=== PATIENT | female | born 1985 | race Caucasian/White ===

== ENCOUNTER 2017-01-04 20:08 | Emergency (ER) | payer MEDICAID ==
[~2017-01-04] VITALS: Ht 165.1 cm; Wt 69.2 kg
[~2017-01-04 20:08] MED LIST: ALBU18HF INH; FLOVENT; METO25TA91 PO; NITR100C56 PO; PREN1TAB60 PO; PRENATAL; [UNRECOGNIZED DRUG - CODE]; progesterone supp RC
[2017-01-04] MEDS ORDERED: ONDANSETRON ODT 8 MG PO ONE (21:09)
[2017-01-04] MEDS ORDERED: MECLIZINE CHEWABLE 25 MG TAB PO ONE (21:30)
[2017-01-04] MEDS ORDERED: MECLIZINE CHEWABLE 25 MG TAB ONE (21:33)
[2017-01-04] MEDS ORDERED: ONDANSETRON ODT 4 MG ONE (21:33)
[2017-01-04] MEDS ORDERED: ONDANSETRON ODT 8 MG ONE (21:37)
[2017-01-04 22:03] LABS: BLOOD UREA NITROGEN 5 mg/dL (7-18)
[2017-01-04 22:07] LABS: IS PT STATUS REG ER OR PRE ER? YES
[2017-01-04 23:45] VITALS: BP 117/73
[2017-01-05] MEDS ORDERED: MECL25TA4 PO (18:39)
[2017-01-05] MEDS ORDERED: ONDA4TAB10 PO (18:39)
== END 2017-01-04 23:47 | disposition home or self-care (01) ==
LOC: ED 23:12
DX: R42 Dizziness and giddiness (principal); R11.0 Nausea; Z88.1 Allergy status to other antibiotic agents
CPT/HCPCS: 36415; 80048; 81001; 82040; 83605; 84484; 85025; 87086; 93005; 99285; Q0162

== ENCOUNTER 2017-01-05 18:09 | Emergency (ER) | payer MEDICAID ==
[~2017-01-05] VITALS: Ht 165.1 cm; Wt 71.3 kg
[2017-01-05] MEDS ORDERED: MECL25TA4 PO (18:39)
[2017-01-05] MEDS ORDERED: ONDA4TAB10 PO (18:39)
[2017-01-05] MEDS ORDERED: ONDANSETRON 2MG/ML, 2ML IVPush ONE (19:00)
[2017-01-05] MEDS ORDERED: SODIUM CHLORIDE 0.9% 1,000ML IVBOLUS ONE (19:00)
[2017-01-05] MEDS ORDERED: METOCLOPRAMIDE 5 MG/ML, 2ML IVPush ONE (19:00)
[2017-01-05] MEDS ORDERED: SODIUM CHLORIDE FLUSH 10ML SYR IVF ONE (19:00)
[2017-01-05] MEDS ORDERED: METOCLOPRAMIDE 5 MG/ML, 2ML ONE (19:10)
[2017-01-05] MEDS ORDERED: ONDANSETRON 2MG/ML, 2ML ONE (19:10)
[2017-01-05] MEDS ORDERED: ACETAMINOPHEN 325 MG TABLET ONE (19:23)
[2017-01-05 19:29] LABS: ASPARTATE AMINO TRANSFERASE 11 U/L (15-37); BLOOD UREA NITROGEN 6 mg/dL (7-18)
[2017-01-05] MEDS ORDERED: ACETAMINOPHEN 325 MG TABLET PO ONE (19:30)
[2017-01-05 22:39] VITALS: BP 101/54
[2017-01-06] MEDS ORDERED: ACET-1600 PO (16:38)
== END 2017-01-05 22:45 | disposition home or self-care (01) ==
LOC: ED 21:48
DX: R51 Headache (principal); R42 Dizziness and giddiness
CPT/HCPCS: 36415; 70551; 80053; 85025; 96361; 96374; 96375; 99285; J2405; J2765; J7030

== ENCOUNTER 2017-01-06 15:32 | Observation (INO) | payer MEDICAID ==
[~2017-01-06] VITALS: Ht 165.1 cm; Wt 71.7 kg
[~2017-01-06 15:32] MED LIST changes: +MECL25TA4 PO; +ONDA4TAB10 PO
[2017-01-06 16:00] VITALS: BP 110/68
[2017-01-06 16:13] LABS: ASPARTATE AMINO TRANSFERASE 11 U/L (15-37); BLOOD UREA NITROGEN 5 mg/dL (7-18)
[2017-01-06] MEDS ORDERED: MECLIZINE CHEWABLE 25 MG TAB PO SCH (16:30)
[2017-01-06] MEDS ORDERED: ACET-1600 PO (16:38)
[2017-01-06] MEDS ORDERED: NITROFURANTOIN (MACROBID) 100 MG CAPSULE ONE (17:52)
[2017-01-06] MEDS ORDERED: NITROFURANTOIN (MACROBID) 100 MG CAPSULE PO ONE (18:00)
[2017-01-06] MEDS ORDERED: LACTATED RINGERS 1,000 ML IVBOLUS ONE (19:30)
[2017-01-06] MEDS ORDERED: HYDROcodone/APAP 5/325 TABLET PO ONE (19:30)
[2017-01-06] MEDS ORDERED: ONDANSETRON 2MG/ML, 2ML IVPush ONE (19:30)
[2017-01-06] MEDS ORDERED: ONDANSETRON 2MG/ML, 2ML ONE (19:37)
[2017-01-06] MEDS ORDERED: ONDANSETRON ODT 4 MG ONE (19:37)
[2017-01-06] MEDS ORDERED: HYDROcodone/APAP 5/325 TABLET ONE (19:38)
== END 2017-01-06 21:26 | disposition home or self-care (01) ==
LOC: LDOP 15:32 → LDIP 19:02
PROVIDERS: ADMIT Student in an Organized Health Care Education/Training Program; ATTEND Student in an Organized Health Care Education/Training Program
DX: O26.893 Other specified pregnancy related conditions, third trimester (principal); G43.001 Migraine without aura, not intractable, with status migrainosus; G44.59 Other complicated headache syndrome; N80.9 Endometriosis, unspecified; Z3A.37 37 weeks gestation of pregnancy; Z98.890 Other specified postprocedural states
CPT/HCPCS: 36415; 59025; 76815; 80053; 81001; 82248; 82570; 84156; 84550; 85025; 87086; 96365; 96375; G0378; J2405; J2930; J7120; 96360; 96374

== ENCOUNTER 2017-01-29 03:57 | Inpatient (IN) | payer MEDICAID ==
[~2017-01-29] VITALS: Ht 165.1 cm; Wt 69.5 kg
[~2017-01-29 03:57] MED LIST changes: +ACET-1600 PO
[2017-01-29 04:15] VITALS: BP 127/83
[2017-01-29] MEDS: D5%-LACTATED RINGERS 1,000 ML IV SCH ×2 (04:29→12:29)
[2017-01-29] MEDS ORDERED: OXYTOCIN 30U/ 0.9% NaCL 500ML 500 ML IV ONE (04:29)
[2017-01-29] MEDS ORDERED: ONDANSETRON 2MG/ML, 2ML IVPush PRN ×2 (04:30→17:30)
[2017-01-29] MEDS ORDERED: FENTANYL PF 100 MCG/2ML IV PRN (04:30)
[2017-01-29] MEDS ORDERED: LIDOCAINE 1%, 20ML ONE (04:34)
[2017-01-29] MEDS ORDERED: FENTANYL PF 100 MCG/2ML ONE ×2 (04:34→17:57)
[2017-01-29] MEDS ORDERED: OXYTOCIN 30U/ 0.9% NaCL 500ML 500 ML ONE ×2 (04:35→05:34)
[2017-01-29] MEDS ORDERED: MISOPROSTOL 200 MCG TABLET ONE (04:35)
[2017-01-29] MEDS: LACTATED RINGERS 1,000 ML IV SCH ×3 (04:45→14:03)
[2017-01-29] MEDS: FENTANYL PF 100 MCG/2ML IVPush PRN ×2 (04:46→17:55)
[2017-01-29] MEDS ORDERED: NEWBORN KIT ONE (04:48)
[2017-01-29] MEDS: OXYTOCIN 30U/ 0.9% NaCL 500ML 500 ML IV SCH ×7 (05:58→15:58)
[2017-01-29] MEDS ORDERED: DOCUSATE 100 MG CAPSULE PO PRN (06:00)
[2017-01-29] MEDS ORDERED: MISOPROSTOL 200 MCG TABLET PR PRN (06:00)
[2017-01-29] MEDS ORDERED: ACETAMINOPHEN 325 MG TABLET PO PRN ×3 (06:00→17:30)
[2017-01-29] MEDS ORDERED: HYDROcodone/APAP 10/325 MG TABLET PO PRN (06:00)
[2017-01-29] MEDS ORDERED: IBUPROFEN 600 MG TABLET ONE (06:04)
[2017-01-29] MEDS ORDERED: OXYcodone/APAP 5/325MG TABLET ONE (06:04)
[2017-01-29] MEDS: IBUPROFEN 600 MG TABLET PO PRN ×2 (06:10→11:59)
[2017-01-29] MEDS: HYDROcodone/APAP 5/325 TABLET PO PRN ×2 (06:10→10:37)
[2017-01-29] MEDS ORDERED: METOPROLOL TARTRATE 25 MG TABLET PO SCH (09:00)
[2017-01-29] MEDS ORDERED: PRENATAL VIT/IRON/FA 1 EACH TABLET PO SCH (09:00)
[2017-01-29] MEDS ORDERED: CITALOPRAM 20 MG TABLET PO SCH (09:00)
[2017-01-29 10:34] VITALS: BP 112/69
[2017-01-29] MEDS ORDERED: HYDROcodone/APAP 5/325 TABLET PO PRN (11:30)
[2017-01-29 12:29] VITALS: BP 121/81
[2017-01-29 15:55] VITALS: BP 121/78
[2017-01-29] MEDS ORDERED: FENTANYL PF 250 MCG/5ML ONE ×2 (16:36→20:36)
[2017-01-29] MEDS ORDERED: MIDAZOLAM 1 MG/ML, 2ML ONE ×2 (16:36→19:08)
[2017-01-29] MEDS ORDERED: PROPOFOL 10 MG/ML, 20ML ONE (16:56)
[2017-01-29] MEDS ORDERED: KETOROLAC 30 MG/1 ML ONE (16:56)
[2017-01-29] MEDS ORDERED: CEFAZOLIN 1,000 MG ONE (16:56)
[2017-01-29] MEDS ORDERED: GLYCOPYRROLATE 0.2MG/1ML ONE (16:56)
[2017-01-29] MEDS ORDERED: PHENYLEPHRINE 10 MG/ML ONE (16:56)
[2017-01-29] MEDS ORDERED: ONDANSETRON 2MG/ML, 2ML ONE (16:56)
[2017-01-29] MEDS ORDERED: SUCCINYLCHOLINE 20 MG/ML, 10ML ONE (16:56)
[2017-01-29] MEDS ORDERED: ROCURONIUM 10 MG/ML ONE ×2 (16:56)
[2017-01-29] MEDS ORDERED: DEXAMETHASONE 4 MG/ML, 1ML ONE (16:56)
[2017-01-29] MEDS ORDERED: PROMETHAZINE 25 MG/ML, 1ML IV PRN (17:30)
[2017-01-29] MEDS ORDERED: hydrALAzine 20 MG/ML, 1ML IV PRN (17:30)
[2017-01-29] MEDS ORDERED: LABETALOL 5MG/ML, 20ML IV PRN (17:30)
[2017-01-29] MEDS ORDERED: METOCLOPRAMIDE 5 MG/ML, 2ML IV PRN ×2 (17:30→23:00)
[2017-01-29] MEDS ORDERED: OXYcodone 5 MG/5 ML ORAL.SOL UDC ONE ×2 (17:57→22:49)
[2017-01-29] MEDS ORDERED: MEPERIDINE/PF 25MG/0.5ML ONE ×2 (17:57→22:48)
[2017-01-29] MEDS: FENTANYL PF 100 MCG/2ML IV PRN ×2 (18:00→18:08)
[2017-01-29] MEDS ORDERED: OXYcodone/APAP 5/325MG TABLET PO PRN (18:00)
[2017-01-29] MEDS: OXYcodone 5 MG/5 ML ORAL.SOL UDC PO PRN ×2 (18:05→22:30)
[2017-01-29] MEDS: MEPERIDINE/PF 25MG/0.5ML IVPush PRN ×2 (18:05→23:01)
[2017-01-29] MEDS ORDERED: HYDROmorphone 1 MG/ML, 1ML ONE (18:15)
[2017-01-29] MEDS: HYDROmorphone 1 MG/ML, 1ML IV PRN ×2 (18:17→18:32)
[2017-01-29] MEDS: MIDAZOLAM 1 MG/ML, 2ML IV PRN ×2 (19:11→19:21)
[2017-01-29] MEDS ORDERED: LORazepam 2 MG/ML, 1ML ONE (19:47)
[2017-01-29] MEDS ORDERED: METOPROLOL TARTRATE 25 MG TABLET PO ONE (20:00)
[2017-01-29] MEDS ORDERED: KETAMINE 10 MG/ML, 20ML ONE (20:36)
[2017-01-29] MEDS ORDERED: ALBUMIN HUMAN 5% 500 ML ONE (20:37)
[2017-01-29] MEDS: LORazepam 2 MG/ML, 1ML IVPush PRN ×2 (20:42→23:45)
[2017-01-29] MEDS ORDERED: MIDAZOLAM 1 MG/ML, 5ML ONE (21:00)
[2017-01-29] MEDS ORDERED: MEPERIDINE/PF 50 MG/ML IM PRN (23:00)
[2017-01-29] MEDS ORDERED: morphine SULFATE 10 MG/ML, 1ML IVPush PRN (23:00)
[2017-01-29] MEDS ORDERED: MEPERIDINE/PF 25MG/0.5ML IM PRN (23:00)
[2017-01-29] MEDS ORDERED: CALCIUM CARBONATE 500 MG TAB.CHEW PO PRN (23:00)
[2017-01-29] MEDS ORDERED: OXYcodone IR 5MG TABLET PO PRN (23:00)
[2017-01-30] VITALS (25 sets, daily range): BP systolic 110–136; BP diastolic 64–85
[2017-01-30] MEDS: morphine SULFATE 10 MG/ML, 1ML IVPush PRN ×2 (00:41→04:57)
[2017-01-30] MEDS: OXYcodone/APAP 5/325MG TABLET PO PRN ×6 (02:06→23:07)
[2017-01-30] MEDS: LACTATED RINGERS 1,000 ML IV SCH ×4 (04:59→22:35)
[2017-01-30 07:30] LABS: ASPARTATE AMINO TRANSFERASE 19 U/L (15-37); BLOOD UREA NITROGEN 3 mg/dL (7-18)
[2017-01-30] MEDS: IBUPROFEN 600 MG TABLET PO PRN ×2 (08:12→21:31)
[2017-01-30] MEDS: SIMETHICONE 80 MG CHEW TAB PO PRN (08:12)
[2017-01-30] MEDS: DOCUSATE 100 MG CAPSULE PO SCH ×2 (08:12→21:00)
[2017-01-30] MEDS: ONDANSETRON 2MG/ML, 2ML IV PRN (08:16)
[2017-01-30] MEDS ORDERED: HYDROmorphone 1 MG/ML, 1ML IV PRN (08:30)
[2017-01-30] MEDS: PRENATAL VIT/IRON/FA 1 EACH TABLET PO SCH (09:00)
[2017-01-30] MEDS ORDERED: LORazepam 2 MG/ML, 1ML IVPush ONE (15:30)
[2017-01-30] MEDS: METOPROLOL TARTRATE 25 MG TABLET PO SCH (15:33)
[2017-01-30] MEDS ORDERED: ACETAMINOPHEN 325 MG TABLET PO ONE (17:30)
[2017-01-30] MEDS ORDERED: DIPHENHYDRAMINE 50 MG/ML, 1ML IVPush ONE (17:30)
[2017-01-31] VITALS (7 sets, daily range): BP systolic 109–118; BP diastolic 63–89
[2017-01-31] MEDS: OXYcodone IR 5MG TABLET PO PRN ×3 (03:15→18:47)
[2017-01-31] MEDS: IBUPROFEN 600 MG TABLET PO PRN ×3 (03:17→17:21)
[2017-01-31] MEDS ORDERED: ONDANSETRON 4 MG TABLET PO PRN (06:30)
[2017-01-31] MEDS: LACTATED RINGERS 1,000 ML IV SCH ×3 (06:35→22:35)
[2017-01-31] MEDS: SIMETHICONE 80 MG CHEW TAB PO PRN ×2 (07:33→19:55)
[2017-01-31] MEDS: DOCUSATE 100 MG CAPSULE PO SCH ×2 (07:33→22:43)
[2017-01-31] MEDS: OXYcodone/APAP 5/325MG TABLET PO PRN ×3 (07:33→22:43)
[2017-01-31] MEDS: PRENATAL VIT/IRON/FA 1 EACH TABLET PO SCH (09:00)
[2017-01-31] MEDS: METOPROLOL TARTRATE 25 MG TABLET PO SCH (09:30)
[2017-01-31] MEDS ORDERED: ONDANSETRON ODT 4 MG ONE (11:27)
[2017-01-31] MEDS: ONDANSETRON 2MG/ML, 2ML IV PRN ×2 (13:35→19:56)
[2017-01-31] MEDS: HYDROCORTISONE CRM 1%, 30GM TP SCH ×2 (13:51→22:43)
[2017-02-01] MEDS: IBUPROFEN 600 MG TABLET PO PRN ×3 (00:07→13:03)
[2017-02-01] MEDS: LORazepam 0.5MG TABLET PO PRN ×2 (00:07→15:30)
[2017-02-01] MEDS: OXYcodone IR 5MG TABLET PO PRN ×4 (02:38→23:31)
[2017-02-01 02:45] VITALS: BP 106/67
[2017-02-01 05:00] VITALS: BP 124/85
[2017-02-01] MEDS: OXYcodone/APAP 5/325MG TABLET PO PRN ×2 (06:39→10:58)
[2017-02-01] MEDS: SIMETHICONE 80 MG CHEW TAB PO PRN ×2 (06:39→20:12)
[2017-02-01 08:30] VITALS: BP 118/74
[2017-02-01] MEDS: PRENATAL VIT/IRON/FA 1 EACH TABLET PO SCH (09:00)
[2017-02-01] MEDS: METOPROLOL TARTRATE 25 MG TABLET PO SCH (09:45)
[2017-02-01] MEDS: HYDROCORTISONE CRM 1%, 30GM TP SCH (09:45)
[2017-02-01] MEDS: DOCUSATE 100 MG CAPSULE PO SCH ×2 (09:45→19:45)
[2017-02-01] MEDS: ONDANSETRON 2MG/ML, 2ML IV PRN (10:58)
[2017-02-01] MEDS ORDERED: SENNOSIDES 8.8 MG/5 ML ORAL SOL PO PRN (15:30)
[2017-02-01] MEDS ORDERED: IBUPROFEN 200 MG TABLET PO PRN (15:30)
[2017-02-01] MEDS ORDERED: ACETAMINOPHEN 325 MG TABLET PO PRN (15:30)
[2017-02-01 19:30] VITALS: BP 109/79
[2017-02-01] MEDS ORDERED: TRIAMCINOLONE OINT 0.1%, 15GM TP SCH ×2 (21:00)
[2017-02-01] MEDS ORDERED: TRIAMCINOLONE CRM 0.1%, 15GM TP SCH (21:00)
[2017-02-01] MEDS: IBUPROFEN 200 MG TABLET PO PRN (21:01)
[2017-02-02 00:10] VITALS: BP 115/75
[2017-02-02] MEDS: SIMETHICONE 80 MG CHEW TAB PO PRN ×2 (03:04→07:48)
[2017-02-02] MEDS: IBUPROFEN 200 MG TABLET PO PRN ×2 (03:04→10:05)
[2017-02-02] MEDS: OXYcodone IR 5MG TABLET PO PRN ×3 (03:11→11:40)
[2017-02-02] MEDS: LORazepam 0.5MG TABLET PO PRN (05:12)
[2017-02-02 05:21] VITALS: BP 112/72
[2017-02-02] MEDS: DOCUSATE 100 MG CAPSULE PO SCH (07:48)
[2017-02-02] MEDS: PRENATAL VIT/IRON/FA 1 EACH TABLET PO SCH (07:48)
[2017-02-02] MEDS: METOPROLOL TARTRATE 25 MG TABLET PO SCH (07:50)
[2017-02-02 08:12] VITALS: BP 122/93
[2017-02-02] MEDS ORDERED: OXYC10TA6 PO (11:23)
[2017-02-02] MEDS ORDERED: OXYC5CAP4 PO (11:23)
[2017-02-02] MEDS ORDERED: IBUP800T PO (11:23)
[2017-02-02] MEDS ORDERED: LORA-445 PO (11:24)
[2017-02-02] MEDS ORDERED: DOCU-30 PO (11:24)
[2017-02-02] MEDS ORDERED: SENN8.6T4 PO (11:24)
[2017-02-02] MEDS ORDERED: ESCI10TA10 PO (11:25)
[2017-02-02] MEDS ORDERED: [UNRECOGNIZED DRUG - OTHER] (11:26)
== END 2017-02-02 12:04 | disposition home or self-care (01) | DRG 767 ==
LOC: LDIP 03:57 → 2NW 10:04
PROVIDERS: ADMIT Student in an Organized Health Care Education/Training Program; ATTEND Student in an Organized Health Care Education/Training Program
PROC: 0UB70ZZ Excision of Bilateral Fallopian Tubes, Open Approach (ICD-10-PCS; 2017-01-29)
PROC: 0KQM0ZZ Repair Perineum Muscle, Open Approach (ICD-10-PCS; 2017-01-29)
PROC: 0D9W0ZZ Drainage of Peritoneum, Open Approach (ICD-10-PCS; 2017-01-29)
PROC: 0UB50ZZ Excision of Right Fallopian Tube, Open Approach (ICD-10-PCS; 2017-01-29)
PROC: 30233L1 Transfusion of Nonautologous Fresh Plasma into Peripheral Vein, Percutaneous Approach (ICD-10-PCS; 2017-01-29)
PROC: 30233N1 Transfusion of Nonautologous Red Blood Cells into Peripheral Vein, Percutaneous Approach (ICD-10-PCS; 2017-01-29)
PROC: 30233K1 Transfusion of Nonautologous Frozen Plasma into Peripheral Vein, Percutaneous Approach (ICD-10-PCS; 2017-01-29)
PROC: 10E0XZZ Delivery of Products of Conception, External Approach (ICD-10-PCS; principal; 2017-01-29 17:00)
DX: O62.3 Precipitate labor (principal); O99.42 Diseases of the circulatory system complicating childbirth; K66.1 Hemoperitoneum; O99.354 Diseases of the nervous system complicating childbirth; O72.2 Delayed and secondary postpartum hemorrhage; D62 Acute posthemorrhagic anemia; O90.81 Anemia of the puerperium; G43.009 Migraine without aura, not intractable, without status migrainosus; O99.52 Diseases of the respiratory system complicating childbirth; O70.1 Second degree perineal laceration during delivery; J45.909 Unspecified asthma, uncomplicated; O99.344 Other mental disorders complicating childbirth; F41.9 Anxiety disorder, unspecified; G43.109 Migraine with aura, not intractable, without status migrainosus; O16.4 Unspecified maternal hypertension, complicating childbirth; Z37.0 Single live birth; F43.10 Post-traumatic stress disorder, unspecified; O69.81X0 Labor and delivery complicated by cord around neck, without compression, not applicable or unspecified; I49.1 Atrial premature depolarization; I49.3 Ventricular premature depolarization; Z30.2 Encounter for sterilization; Z3A.40 40 weeks gestation of pregnancy; Z82.5 Family history of asthma and other chronic lower respiratory diseases
CPT/HCPCS: 36415; 76700; 80053; 85014; 85025; 85027; 85384; 85610; 85730; 86850; 86900; 86923; 88302; 88304; 93005; J0690; J1100; J1170; J1885; J2175; J2250; J2405; J2704; J3010; J3490; P9045; Q0162; J0330; J1200; J2060; J2270; J2370; J2590; J2765; J7120; P9016; P9017

== ENCOUNTER → 2017-02-03 | Outpatient (CLI) | payer MEDICAID ==
[~2017-02-03] MED LIST changes: +DOCU-30 PO; +ESCI10TA10 PO; +IBUP800T PO; +LORA-445 PO; +OXYC10TA6 PO; +OXYC5CAP4 PO; +SENN8.6T4 PO; +[UNRECOGNIZED DRUG - OTHER]
== END | disposition home or self-care (01) ==
LOC: CFH 10:18
PROVIDERS: ATTEND Student in an Organized Health Care Education/Training Program
DX: R60.0 Localized edema (principal); O72.2 Delayed and secondary postpartum hemorrhage; Z98.51 Tubal ligation status
CPT/HCPCS: 76705

== ENCOUNTER 2017-02-06 13:21 | Emergency (ER) | payer MEDICAID ==
[~2017-02-06] VITALS: Ht 165.1 cm; Wt 66.8 kg
[2017-02-06] MEDS ORDERED: SODIUM CHLORIDE 0.9% 1,000 ML IV ONE (13:52)
[2017-02-06] MEDS ORDERED: SODIUM CHLORIDE 0.9% 1,000ML IVBOLUS ONE (14:00)
[2017-02-06] MEDS ORDERED: SODIUM CHLORIDE FLUSH 10ML SYR IVF ONE (14:00)
[2017-02-06] MEDS ORDERED: ONDANSETRON 2MG/ML, 2ML IVPush ONE (14:00)
[2017-02-06] MEDS ORDERED: ONDANSETRON 2MG/ML, 2ML ONE (14:10)
[2017-02-06] MEDS ORDERED: HYDROmorphone 1 MG/ML, 1ML ONE ×2 (14:10→16:14)
[2017-02-06] MEDS: HYDROmorphone 1 MG/ML, 1ML IVPush PRN ×2 (14:13→16:18)
[2017-02-06 14:31] LABS: BLOOD UREA NITROGEN 6 mg/dL (7-18)
[2017-02-06 14:35] LABS: ASPARTATE AMINO TRANSFERASE 31 U/L (15-37)
[2017-02-06] MEDS ORDERED: OMNIPAQUE 350 MG/ML, 100ML BOTTLE ONE (15:41)
[2017-02-06] MEDS ORDERED: OXYcodone/APAP 5/325MG TABLET PO ONE (18:30)
[2017-02-06] MEDS ORDERED: METHYLERGONOVINE 0.2MG TABLET PO ONE (18:30)
[2017-02-06] MEDS ORDERED: OXYcodone/APAP 5/325MG TABLET ONE (18:38)
[2017-02-06 19:25] VITALS: BP 140/92
== END 2017-02-06 19:49 | disposition home or self-care (01) ==
LOC: ED 14:05
DX: N93.8 Other specified abnormal uterine and vaginal bleeding (principal); N92.0 Excessive and frequent menstruation with regular cycle; N92.4 Excessive bleeding in the premenopausal period; Z90.49 Acquired absence of other specified parts of digestive tract; R58 Hemorrhage, not elsewhere classified
CPT/HCPCS: 36415; 74177; 80053; 81003; 85025; 85610; 85730; 96361; 96374; 96375; 96376; 99291; J1170; J2405; J7030; Q9967

== ENCOUNTER 2017-11-17 09:57 | Day surgery (SDC) | payer BC ==
[~2017-11-17] VITALS: Ht 165.1 cm; Wt 59.6 kg
[~2017-11-17 09:57] MED LIST changes: +BUPIVACAINE/PF 0.25% ONE; +CLON0.5T PO; +DOCU-131 PO; -DOCU-30 PO; +EPINEPHRINE 1 MG/ML, 1ML ONE; +FLUORESCEIN SODIUM 500 MG/5 ML ONE; +IBUP-1223 PO; -IBUP800T PO; +METO25TA35 PO; +OXYC5CAP2 PO; -OXYC5CAP4 PO; +OXYM30SP NS; +SENN-87 PO; -SENN8.6T4 PO
[2017-11-17 10:41] VITALS: BP 110/77
[2017-11-17] MEDS ORDERED: LACTATED RINGERS 1,000 ML IV SCH ×2 (11:00→13:50)
[2017-11-17] MEDS ORDERED: FENTANYL PF 100 MCG/2ML ONE ×2 (11:03→13:55)
[2017-11-17] MEDS ORDERED: MIDAZOLAM 1 MG/ML, 2ML ONE (11:03)
[2017-11-17] MEDS ORDERED: LIDOCAINE GEL 2%, 5ML ONE ×3 (11:04→14:57)
[2017-11-17] MEDS ORDERED: KETOROLAC 30 MG/1 ML ONE ×2 (11:04→15:39)
[2017-11-17] MEDS ORDERED: MEPERIDINE/PF 25MG/0.5ML IVPush PRN (13:00)
[2017-11-17] MEDS ORDERED: hydrALAzine 20 MG/ML, 1ML IV PRN (13:00)
[2017-11-17] MEDS ORDERED: ALBUTEROL/IPRATROPIUM 2.5MG/0.5MG, 3 ML NPPB PRN (13:00)
[2017-11-17] MEDS ORDERED: PROMETHAZINE 12.5 MG SUPP PR PRN (13:00)
[2017-11-17] MEDS ORDERED: METOCLOPRAMIDE 5 MG/ML, 2ML IV PRN (13:00)
[2017-11-17] MEDS ORDERED: ALBUTEROL SULFATE 2.5 MG/3 ML NPPB PRN (13:00)
[2017-11-17] MEDS ORDERED: OXYcodone 5 MG/5 ML ORAL.SOL UDC PO PRN (13:00)
[2017-11-17] MEDS ORDERED: LORazepam 2 MG/ML, 1ML IVPush PRN (13:00)
[2017-11-17] MEDS ORDERED: ACETAMINOPHEN 500 MG TABLET PO ONE (13:00)
[2017-11-17] MEDS ORDERED: GABAPENTIN 300 MG CAPSULE PO ONE (13:00)
[2017-11-17] MEDS ORDERED: MIDAZOLAM 1 MG/ML, 2ML IV PRN (13:00)
[2017-11-17] MEDS ORDERED: DIAZEPAM 5 MG/ML, 2ML IVPush PRN (13:00)
[2017-11-17] MEDS ORDERED: ONDANSETRON 2MG/ML, 2ML IVPush PRN ×2 (13:00→14:00)
[2017-11-17] MEDS ORDERED: PROMETHAZINE 25 MG/ML, 1ML IV PRN (13:00)
[2017-11-17] MEDS ORDERED: LABETALOL 5MG/ML, 20ML IV PRN (13:00)
[2017-11-17] MEDS ORDERED: morphine SULFATE 10 MG/ML, 1ML IV PRN (13:00)
[2017-11-17] MEDS ORDERED: INTERCEED 3 X 4 INCH DRESSING ONE (13:15)
[2017-11-17] MEDS ORDERED: PROMETHAZINE 25 MG/ML, 1ML ONE (13:49)
[2017-11-17] MEDS ORDERED: ACETAMINOPHEN 650 MG/20.3 ML UDC ONE (13:55)
[2017-11-17] MEDS ORDERED: OXYcodone 5 MG/5 ML ORAL.SOL UDC ONE (13:55)
[2017-11-17] MEDS ORDERED: IBUPROFEN 600 MG TABLET PO PRN (14:00)
[2017-11-17] MEDS ORDERED: HYDROcodone/APAP 5/325 TABLET PO PRN (14:00)
[2017-11-17] MEDS ORDERED: PROMETHAZINE 25 MG SUPP PR ONE (14:00)
[2017-11-17] MEDS: FENTANYL PF 100 MCG/2ML IV PRN ×3 (14:00→14:32)
[2017-11-17] MEDS ORDERED: MEPERIDINE/PF 25MG/0.5ML ONE (14:51)
[2017-11-17] MEDS ORDERED: PROPOFOL 10 MG/ML, 20ML ONE (14:56)
[2017-11-17] MEDS ORDERED: DEXAMETHASONE 4 MG/ML, 1ML ONE (14:56)
[2017-11-17] MEDS ORDERED: SUCCINYLCHOLINE 20 MG/ML, 10ML ONE (14:56)
[2017-11-17] MEDS ORDERED: ONDANSETRON 2MG/ML, 2ML ONE (14:56)
[2017-11-17] MEDS ORDERED: CEFAZOLIN 1,000 MG ONE ×2 (14:56→14:57)
[2017-11-17] MEDS ORDERED: NEOSTIGMINE 1 MG/ML, 10ML ONE (14:56)
[2017-11-17] MEDS ORDERED: GLYCOPYRROLATE 0.2MG/1ML, 5ML ONE (14:56)
[2017-11-17] MEDS ORDERED: LIDOCAINE-MPF 2% ,5ML ONE ×2 (14:57→15:25)
[2017-11-17] MEDS ORDERED: METOCLOPRAMIDE 5 MG/ML, 2ML ONE (15:39)
[2017-11-17] MEDS ORDERED: LABETALOL 5MG/ML, 20ML ONE (15:39)
== END 2017-11-17 20:25 ==
LOC: OUT 09:57
PROVIDERS: ATTEND Obstetrics & Gynecology Female Pelvic Medicine and Reconstructive Surgery
DX: N92.0 Excessive and frequent menstruation with regular cycle (principal); N99.820 Postprocedural hemorrhage of a genitourinary system organ or structure following a genitourinary system procedure; N73.6 Female pelvic peritoneal adhesions (postinfective); N80.9 Endometriosis, unspecified; N83.201 Unspecified ovarian cyst, right side; N94.6 Dysmenorrhea, unspecified; F32.9 Major depressive disorder, single episode, unspecified; F41.9 Anxiety disorder, unspecified; G43.909 Migraine, unspecified, not intractable, without status migrainosus; J45.909 Unspecified asthma, uncomplicated; Z88.0 Allergy status to penicillin; Z98.51 Tubal ligation status; Z98.890 Other specified postprocedural states; I25.10 Atherosclerotic heart disease of native coronary artery without angina pectoris; Z88.1 Allergy status to other antibiotic agents; Z88.8 Allergy status to other drugs, medicaments and biological substances
CPT/HCPCS: 58571; 88307; C1765; J0171; J0690; J1100; J1885; J2175; J2250; J2270; J2405; J2550; J2704; J2710; J2765; J3010; J3490; J7120; J0330

== ENCOUNTER 2017-11-29 19:18 | Emergency (ER) | payer BC ==
[~2017-11-29] VITALS: Ht 165.1 cm; Wt 60.5 kg
[~2017-11-29 19:18] MED LIST changes: -BUPIVACAINE/PF 0.25% ONE; -EPINEPHRINE 1 MG/ML, 1ML ONE; -FLUORESCEIN SODIUM 500 MG/5 ML ONE
[2017-11-29] MEDS ORDERED: SODIUM CHLORIDE FLUSH 10ML SYR IVF ONE (20:00)
[2017-11-29] MEDS ORDERED: SODIUM CHLORIDE 0.9% 1,000ML IVBOLUS ONE (20:00)
[2017-11-29] MEDS ORDERED: ONDANSETRON 2MG/ML, 2ML IVPush ONE (20:00)
[2017-11-29] MEDS ORDERED: MORPHINE SULFATE 4 MG/ML, 1ML IVPush PRN (20:00)
[2017-11-29] MEDS ORDERED: ONDANSETRON 2MG/ML, 2ML ONE (20:06)
[2017-11-29 20:22] LABS: BASOPHILS # (AUTO) 0.02 x10^3/uL (0-0.1); BASOPHILS % (AUTO) 0 % (0-1); EOSINOPHILS # (AUTO) 0.17 x10^3/uL (0-0.4); EOSINOPHILS % (AUTO) 3 % (1-7); LYMPHOCYTES # (AUTO) 3.04 x10^3/uL (1-3.4); LYMPHOCYTES % (AUTO) 54 % (22-44); MD NO; MEAN CORPUSCULAR HEMOGLOBIN 28.3 pg (27.0-34.8); MEAN CORPUSCULAR HGB CONC 33.7 g/dL (32.4-35.8); MEAN PLATELET VOLUME 7.1 fL (7.4-10.4); MONOCYTES # (AUTO) 0.38 x10^3/uL (0.2-0.8); MONOCYTES % (AUTO) 7 % (2-9); NEUTROPHILS # (AUTO) 2.06 x10^3/uL (1.8-6.8); NEUTROPHILS % (AUTO) 36 % (42-75); PLATELET COUNT 311 x10^3/uL (130-400); RED BLOOD COUNT 4.43 x10^6/uL (3.82-5.3); RED CELL DISTRIBUTION WIDTH 13.6 % (9.6-15.2)
[2017-11-29 20:30] LABS: CULTURE INDICATED? YES; MICROSCOPIC AUTO
[2017-11-29 20:32] LABS: ALANINE AMINOTRANSFERASE 20 U/L (12-78); ALBUMIN 3.6 g/dL (3.4-5.0); ANION GAP 10 mmol/L (5-15); CALCIUM 8.6 mg/dL (8.5-10.1); CHLORIDE 107 mmol/L (98-107); CREATININE 0.82 mg/dL (0.55-1.02)
[2017-11-29 20:34] LABS: ALKALINE PHOSPHATASE 59 U/L (45-117); BILIRUBIN,TOTAL 0.2 mg/dL (0.2-1.0); TOTAL PROTEIN 7.4 g/dL (6.4-8.2)
[2017-11-29] MEDS ORDERED: MORPHINE SULFATE 4 MG/ML, 1ML ONE (21:46)
[2017-11-29 21:56] VITALS: BP 111/84
[2017-11-29] MEDS ORDERED: OMNIPAQUE 350 MG/ML, 100ML BOTTLE ONE (22:01)
== END 2017-11-29 22:10 | disposition home or self-care (01) ==
LOC: ED 22:04
DX: G89.18 Other acute postprocedural pain (principal); R10.84 Generalized abdominal pain; N30.90 Cystitis, unspecified without hematuria; Z88.0 Allergy status to penicillin; Z88.1 Allergy status to other antibiotic agents; Z30.2 Encounter for sterilization; Z90.710 Acquired absence of both cervix and uterus; Z90.49 Acquired absence of other specified parts of digestive tract; Z98.890 Other specified postprocedural states
CPT/HCPCS: 36415; 74177; 80053; 81001; 83690; 85025; 87086; 96361; 96374; 96375; 99285; J2405; J7030; Q9967

== ENCOUNTER 2018-04-13 14:56 | Emergency (ER) | payer BC, MEDICAID, OTHER ==
[~2018-04-13] VITALS: Ht 165.1 cm; Wt 60.0 kg
[2018-04-13 15:09] VITALS: BP 124/77
== END 2018-04-13 16:38 | disposition home or self-care (01) ==
LOC: ED 16:20
DX: S63.512A Sprain of carpal joint of left wrist, initial encounter (principal); G43.909 Migraine, unspecified, not intractable, without status migrainosus; Z90.49 Acquired absence of other specified parts of digestive tract; Z90.89 Acquired absence of other organs; X50.0XXA Overexertion from strenuous movement or load, initial encounter; Y93.89 Activity, other specified; Y92.096 Garden or yard of other non-institutional residence as the place of occurrence of the external cause; Y99.8 Other external cause status
CPT/HCPCS: 29125; 99284

== ENCOUNTER 2018-11-29 15:34 | Emergency (ER) | payer MEDICAID, OTHER ==
[~2018-11-29] VITALS: Ht 162.6 cm; Wt 63.3 kg
[~2018-11-29 15:34] MED LIST changes: -SENN-87 PO; +SENN-88 PO
[2018-11-29] MEDS ORDERED: ONDANSETRON 2MG/ML, 2ML IVPush ONE (16:00)
[2018-11-29] MEDS ORDERED: ONDANSETRON 2MG/ML, 2ML ONE (16:10)
[2018-11-29] MEDS ORDERED: HYDROmorphone 1 MG/ML, 1ML VIAL ONE ×2 (16:11→17:01)
[2018-11-29] MEDS: HYDROmorphone 2 MG/ML, 1ML IVPush PRN ×2 (16:13→17:06)
[2018-11-29 16:20] LABS: HCT (SEDRATE) 40.8 % (34.6-47.8)
[2018-11-29 16:21] LABS: BASOPHILS # (AUTO) 0.02 x10^3/uL (0-0.1); BASOPHILS % (AUTO) 0 % (0-1); EOSINOPHILS # (AUTO) 0.12 x10^3/uL (0-0.4); EOSINOPHILS % (AUTO) 2 % (1-7); LYMPHOCYTES # (AUTO) 2.73 x10^3/uL (1-3.4); LYMPHOCYTES % (AUTO) 46 % (22-44); MD NO; MEAN CORPUSCULAR HGB CONC 33.1 g/dL (32.4-35.8); MEAN CORPUSCULAR VOLUME 87.7 fL (80-100); MEAN PLATELET VOLUME 6.5 fL (7.4-10.4); MONOCYTES # (AUTO) 0.46 x10^3/uL (0.2-0.8); MONOCYTES % (AUTO) 8 % (2-9); NEUTROPHILS # (AUTO) 2.68 x10^3/uL (1.8-6.8); NEUTROPHILS % (AUTO) 45 % (42-75); PLATELET COUNT 319 x10^3/uL (130-400); RED BLOOD COUNT 4.67 x10^6/uL (3.82-5.3); RED CELL DISTRIBUTION WIDTH 13.1 % (9.6-15.2)
[2018-11-29 16:27] LABS: ALBUMIN 4.2 g/dL (3.4-5.0); ANION GAP 5 mmol/L (5-15); C-REACTIVE PROTEIN, QUANT 0.54 mg/dL (0.02-0.49); CALCIUM 9.2 mg/dL (8.5-10.1); CHLORIDE 105 mmol/L (98-107); CREATININE 0.93 mg/dL (0.55-1.02)
[2018-11-29 17:42] VITALS: BP 119/73
== END 2018-11-29 17:45 | disposition home or self-care (01) ==
LOC: ED 16:55
DX: K08.89 Other specified disorders of teeth and supporting structures (principal); Z90.49 Acquired absence of other specified parts of digestive tract
CPT/HCPCS: 36415; 80048; 82040; 84703; 85025; 85651; 86140; 96374; 96375; 96376; 99283; J1170; J2405

== ENCOUNTER 2019-02-23 01:42 | Emergency (ER) | payer MEDICAID, OTHER ==
[~2019-02-23] VITALS: Ht 165.1 cm; Wt 61.4 kg
[2019-02-23] MEDS ORDERED: MORPHINE SULFATE 4 MG/ML, 1ML ONE ×2 (02:30→04:59)
[2019-02-23] MEDS ORDERED: PROMETHAZINE 25 MG/ML, 1ML ONE ×2 (02:30→04:58)
[2019-02-23] MEDS ORDERED: MORPHINE SULFATE 4 MG/ML, 1ML IVPush PRN ×2 (02:30→05:00)
[2019-02-23] MEDS ORDERED: PROMETHAZINE 25 MG/ML, 1ML IM ONE ×2 (02:30→05:00)
--- NOTE | 2019-02-23 02:38 | NUR ---
PT. MEDICATED PER OCT. MONITORS IN PLACE. CALL LIGHT IN REACH. ALL SAFETY MEASURES OBSERVED.
[2019-02-23 03:05] LABS: BASOPHILS % (AUTO) 0 % (0-1); EOSINOPHILS # (AUTO) 0.04 x10^3/uL (0-0.4); EOSINOPHILS % (AUTO) 0 % (1-7); LYMPHOCYTES # (AUTO) 1.03 x10^3/uL (1-3.4); LYMPHOCYTES % (AUTO) 10 % (22-44); MD NO; MEAN CORPUSCULAR HEMOGLOBIN 29.2 pg (27.0-34.8); MEAN CORPUSCULAR HGB CONC 33.1 g/dL (32.4-35.8); MEAN CORPUSCULAR VOLUME 88.2 fL (80-100); MEAN PLATELET VOLUME 6.5 fL (7.4-10.4); MONOCYTES # (AUTO) 0.64 x10^3/uL (0.2-0.8); MONOCYTES % (AUTO) 6 % (2-9); NEUTROPHILS # (AUTO) 8.85 x10^3/uL (1.8-6.8); NEUTROPHILS % (AUTO) 84 % (42-75); PLATELET COUNT 280 x10^3/uL (130-400); RED BLOOD COUNT 4.48 x10^6/uL (3.82-5.3); RED CELL DISTRIBUTION WIDTH 13.9 % (9.6-15.2)
[2019-02-23 03:17] LABS: ALANINE AMINOTRANSFERASE 22 U/L (12-78); ALBUMIN 3.9 g/dL (3.4-5.0); ANION GAP 8 mmol/L (5-15); CALCIUM 8.6 mg/dL (8.5-10.1); CHLORIDE 109 mmol/L (98-107)
--- NOTE | 2019-02-23 03:18 | NUR ---
PT. REPORTS PAIN IS DOWN TO 1/10 AT THIS TIME. CONTINUES TO C/O NAUSEA DESPITE MEDS. GAVE PT. ICE CHIPS. PT. UNABLE TO PROVIDE URINE SAMPLE THUS FAR. DENIES OTHER NEEDS.
[2019-02-23 03:20] LABS: ALKALINE PHOSPHATASE 42 U/L (45-117); BILIRUBIN,TOTAL 0.9 mg/dL (0.2-1.0); CREATININE 0.86 mg/dL (0.55-1.02)
--- NOTE | 2019-02-23 03:49 | NUR ---
DISCUSSED PT. INABILITY TO PROVIDE UA WITH DR. BENTLEY. NEW ORDERS RECEIVED; IVF INFUSING PER MAR.
[2019-02-23] MEDS ORDERED: SODIUM CHLORIDE 0.9% 1,000ML IVBOLUS ONE (04:00)
--- NOTE | 2019-02-23 04:29 | NUR ---
PT. EDUCATED ON CLEAN CATCH UA AND AMBULATED TO FOR URINE SAMPLE.
--- NOTE | 2019-02-23 04:36 | NUR ---
URINE COLLECTED AND SENT TO LAB. MONITORS RE-APPLIED. CALL LIGHT IN REACH. MARIO PAW WARMER IN USE PT. C/O BEING COLD AFTER IVF.
[2019-02-23 04:54] LABS: MICROSCOPIC NOT IND
[2019-02-23 04:57] LABS: CULTURE INDICATED? NO
--- NOTE | 2019-02-23 05:08 | NUR ---
PT. MEDICATED PER OCT FOR RETURN OF PAIN AND NAUSEA. PROVIDED WITH WATER PER DR. BENTLEY. DENIES OTHER NEEDS.
[2019-02-23 05:45] VITALS: BP 95/59
== END 2019-02-23 05:46 | disposition home or self-care (01) ==
LOC: ED 03:04
DX: E86.0 Dehydration (principal); R10.31 Right lower quadrant pain; Z90.49 Acquired absence of other specified parts of digestive tract; Z90.710 Acquired absence of both cervix and uterus
CPT/HCPCS: 36415; 80053; 81003; 83690; 85025; 96372; 96374; 96375; 99283; J2270; J2550; J7030